=== PATIENT | male | born 1945 | race Caucasian/White ===

== ENCOUNTER → 2024-01-20 08:43 | Outpatient (CLI) | payer OTHER, SELFPAY ==
[2024-01-20 09:48] LABS: Add Manual Diff / Slide Review NO; Basophils Absolute Auto 0 /uL (0-100); Basophils Percent Auto 0.7 % (0-2); Eosinophils Absolute Auto 100 /uL (0-450); Eosinophils Percent Auto 2.4 % (2-4); Hematocrit 41.9 % (41-53); Lymphocytes Absolute Auto 1100 /uL (1100-4500); Lymphocytes Percent Auto 22.5 % (25-40); Mean Corpuscular HGB Conc 33.5 % (30-36); Mean Corpuscular Hemoglobin 31.2 PG (26-34); Mean Corpuscular Volume 93.1 fL (80-100); Monocytes Absolute Auto 500 /uL (0-900); Monocytes Percent Auto 9.6 % (3-14); Neutrophils Absolute Auto 3200 /uL (1500-7000); Neutrophils Percent Auto 64.8 % (50-75); Platelet Count 214 X10^3/uL (150-400); Red Cell Distribution Width 13.7 % (11.6-14.8)
[2024-01-20 10:22] LABS: Alanine Aminotransferase 28 IU/L (<50); Albumin 4.2 g/dL (3.5-5.0); Albumin Globulin Ratio 1.8 (1.0-2.8); Alkaline Phosphatase 67 U/L (38-126); Aspartate Aminotransferase 36 IU/L (17-59); Bilirubin Total 0.6 mg/dL (0.2-1.3); Blood Urea Nitrogen 27 mg/dL (9-20); Calcium 9.2 mg/dL (8.4-10.2); Carbon Dioxide 30 mmol/L (22-32); Chloride 104 mmol/L (98-107); Cholesterol 182 mg/dL (140-199); Estimated Glomerular Filt Rate > 60 mL/min (>60); Globulin 2.4 g/dL (1.7-4.1); Glucose 92 mg/dL (80-110); HDL Cholesterol 63 mg/dL (40-60); HEMOLYSIS < 15 (0-50); LDL Cholesterol Calculated 109 mg/dL (<100); Potassium 4.3 mmol/L (3.4-5.1); Sodium 140 mmol/L (137-145); Total Protein 6.6 g/dL (6.3-8.2); Triglycerides 52 mg/dL (35-150)
[2024-01-20 10:43] LABS: Prostate Specific Antigen Scrn 1.63 ng/mL (0.1-4.0)
[2024-01-20 17:00] LABS: Hep C Virus Ab w/Reflex Quant NEGATIVE s/c (NEGATIVE)
== END ==
PROVIDERS: PCP Family Medicine; Referring Provider Family Medicine; Visit Provider Family Medicine
DX: Z00.00 Encounter for general adult medical examination without abnormal findings (principal); K40.90 Unilateral inguinal hernia, without obstruction or gangrene, not specified as recurrent; N52.9 Male erectile dysfunction, unspecified; Z12.5 Encounter for screening for malignant neoplasm of prostate; R03.0 Elevated blood-pressure reading, without diagnosis of hypertension
CPT/HCPCS: 36415; 80053; 80061; 85025; 86803; G0103

== ENCOUNTER → 2024-05-14 09:48 | Outpatient (CLI) | payer OTHER, SELFPAY | PROVIDERS: PCP Family Medicine; Visit Provider Urology | DX: N40.1 Benign prostatic hyperplasia with lower urinary tract symptoms (principal) | CPT/HCPCS: 87086 ==

== ENCOUNTER 2024-05-18 07:56 | Day surgery (SDC) | payer OTHER, SELFPAY ==
[2024-05-12 09:21] VITALS: BMI 23.6
[2024-05-18] VITALS (12 sets, daily range): BP systolic 122–154; BP diastolic 68–86; PULSE 50–68; RESP 10–26; TEMP 36.1–36.5; O2SAT 95–100; BMI 23.6
--- NOTE | 2024-05-18 | PATH_ITS ---
[facility] Accession Number: [id number] No. of containers..01 Tissue . 01 Material submitted: . prostate - PROSTATE TISSUE . 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 Negative for epithelial atypia or malignancy. [facility] 05/20/2024 0937 Local . 01 Electronically signed: . Brunilda Arango MD, Pathologist NPI- [id number] . 01 Gross description: . Received in formalin with two patient identifiers and prostate tissue, are multiple hall soft tissue fragments admixed with a moderate amount of hemorrhagic material weighing 5 grams and aggregating to 5.2 x 5.2 x 1.5 cm. Submitted entirely in A1-A5. ([id number]) /MRV 05/19/2024 1454 Local . 01 Pathologist provided ICD-10: N40.1 . 01 CPT . 206054 Specimen Comment: A courtesy copy of this report has been sent to [facility] Performed at: [address] [address], [place], [place] [id number] MD Zaki Conde MD Phone: [phone]
[2024-05-18] MEDS: LACTATED RINGERS 1,000 ML 21 ML IV (08:21)
[2024-05-18] MEDS: FLEETS ENEMA 1 EACH PR (08:44)
--- NOTE | 2024-05-18 09:13 | P.OP.PRE_ITS ---
Pre-operative Note COVID-19 COVID-19 status: Not tested Interval Note History & Physical reviewed/Exam performed by Physician: Yes Changes to H&P: Yes H&P completed within 30 days and has changed as indicated here:: He did the re commended bowel prep preoperatively, however, does not have clear bowel movements at the moment. Discussed that I may not be able to visualize his prostate using the ultrasound probe. If that is the case, I would not be able to proceed with an Aquablation procedure. Discussed options to include rescheduling to another date vs performing a transurethral resection of his prostate. He opted for management via a TURP if that is the case. Consent was updated to reflect this change.
[2024-05-18] MEDS: CEFAZOLIN 2 GM/100 ML PREMIX 100 ML IV (09:42)
--- NOTE | 2024-05-18 10:07 | SUR.OPER ---
Lithotomy on padded OR bed, head on pillow, arms secured on padded arm boards at <90 degrees abduction. Legs secured in padded yellow fins stirrups.
--- NOTE | 2024-05-18 11:25 | PM.OP.1 ---
Procedure & Clinicians Procedure: Cystoscopy Aquablation Same procedure as scheduled: Yes Indications: 78 y/o M noted to have symptoms consistent w/ BPH and LUTS who is not a big medication person and prefers to have an Aquablation procedure performed. Surgeon: Carlos Medeiros Click Yes if Unassisted: Yes Anesthesia Type: General Operative Notes Findings: Coaptating lateral prostatic lobes, no intravesical median lobe Closure Type: not applicable Specimen(s): other (prostate chips) Applied: catheter Estimated Blood Loss (mL): 50 Blood products transfused: none Procedure in detail: After informed consent was obtained, the patient was identified brought to the operating room where he was placed in his supine position on the table.? Once there anesthesia was induced and maintained.? Ensuring an adequate level of anesthesia the patient was transitioned to the lithotomy position where after time-out he was prepped.? After prepping, ensuring an adequate level of anesthesia, administration IV antibiotics and time-out 60 cc of ultrasound gel was instilled within the rectum and the ultrasound probe which had been attached to the TRUS stepper which was attached to the TRUS stepper articulating arm which was secured to the bed was advanced into the rectum under direct vision via the ultrasound.? The ultrasound probe was then aligned and confirmation made that the prostate was centered and aligned in both the sagittal and transverse views.? The bladder neck, verumontanum, central and transitional zones were identified.? With the ultrasound in place and adjusted the patient was then draped in a sterile fashion. With the patient draped the 24 [place] aqua beam handpiece was then inserted through the urethra and advanced into the bladder.? Cystoscopy was then performed and no concerning bladder mass or lesions were noted.? Bilateral ureteral orifices were noted to be orthotopic in nature.? As the cystoscope was advanced the level of the sphincter, verumontanum, bladder neck were all identified via ultrasound and under direct vision.? The aqua beam hand place was then secured to the handpiece articulating arm which had been secured to the bed.? The Aquablation handpiece and TRUS probe were confirmed to be parallel and colinear.? Confirmation was then made that the aqua beam handpiece and nozzle was centered and anterior to the bladder neck.? The cystoscope was then retracted under direct vision in the sphincter and verumontanum were identified.? The tip of the cystoscope was then placed proximal to the external sphincter.? Compression was applied with the TRUS probe to the prostate.? The alignment of the TRUS probe and aqua beam handpiece was once again confirmed.? Horizontal alignment of the handpiece water jet was then performed.? With these adjustments made, the treatment zones were then planned using real-time ultrasound.? In the largest transverse view of the prostate the depth and radial angles were determined and set again in the transverse view of the prostate.? In the longitudinal and sagittal view the Aquablation nozzle was identified and its position registered with the software and robot.? The treatment contours were then determined and adjusted to reflect the intended margins of resection.? Following our plan confirmation, the Aquablation resection treatment was started.? A 2nd pass was then completed in similar fashion after the 1st pass had been completed.? At this point, the Aqua hand piece was removed from the urethra. The 26Fr resectoscope was then inserted into the urethra and cystoscopy was repeated.? The Elik habilitation worker was utilized to evacuate the blood clots from the bladder.? The bladder neck was then resected using the bipolar Gyrus loop.? Bilateral ureteral orifices were again identified and noted to be intact at case end.? Hemostasis was obtained and noted to be excellent at case end.? The resectoscope was then removed and a 22Fr Liliana 3-way hematuria catheter was inserted through the urethra and into the bladder.? 45cc of sterile water was utilized for balloon insufflation.? Efflux was noted to be clear at case end.? Anesthesia was reversed, he was extubated in the OR and transferred to the PACU in stable condition for recovery. Complications: none Post-operative Condition: stable Disposition: PACU Plan for aftercare: Will continue to run CBI for a few hours to evaluate the efflux from his catheter.? Should it remain relatively clear and with minimal blood clots, will discharge home with catheter in place and have him return to Urology clinic in 2 days for a voiding trial.? Should his efflux remain red or have significant clot burden, will admit overnight for observation and continued CBI.
--- NOTE | 2024-05-18 14:29 | SUR.PHASEII ---
1400 - Demonstrated to pt and (with return demonstration) emptying of beltran bag and care of catheter. Demonstrated flushing catheter as needed. Pt and verbalize understanding. Beltran cont's to drain clear pink. Awaiting Dr Medeiros's return for final assessment and discharge ok.
== END 2024-05-18 14:45 | disposition home or self-care (01) ==
LOC: OR 08:09 → AC 08:10
PROVIDERS: PCP Family Medicine; Referring Provider Urology; Visit Provider Urology
PROC: 0VT08ZZ Resection of Prostate, Via Natural or Artificial Opening Endoscopic (ICD-10-PCS; CPT 52597; principal; 2024-05-18 09:30)
DX: N40.1 Benign prostatic hyperplasia with lower urinary tract symptoms (principal); R35.1 Nocturia; R39.15 Urgency of urination
CPT/HCPCS: 0421T; C2596; J0690; J1100; J2405; J2704; J3010

== ENCOUNTER → 2024-05-20 14:27 | Outpatient (CLI) | payer OTHER, SELFPAY | PROVIDERS: PCP Family Medicine; Visit Provider Urology | DX: N40.1 Benign prostatic hyperplasia with lower urinary tract symptoms (principal) | CPT/HCPCS: 51798; 87086; 99213 ==

== ENCOUNTER → 2024-07-01 08:52 | Outpatient (CLI) | payer OTHER, SELFPAY | PROVIDERS: PCP Family Medicine; Visit Provider Urology | DX: N40.1 Benign prostatic hyperplasia with lower urinary tract symptoms (principal); Z12.5 Encounter for screening for malignant neoplasm of prostate | CPT/HCPCS: 51798; 81002; 87086; 99213 ==

== ENCOUNTER → 2024-09-30 10:32 | Outpatient (CLI) | payer OTHER, SELFPAY ==
[2024-09-30 10:40] LABS: Appearance Urine UA CLEAR; Bilirubin Urine UA NEGATIVE (NEGATIVE); Color Urine UA YELLOW; Glucose Urine UA NEGATIVE (Negative); Ketones Urine UA NEGATIVE (NEGATIVE); Leukocyte Esterase Urine UA TRACE (NEGATIVE); Nitrite Urine UA NEGATIVE (Negative); Occult Blood Urine UA NEGATIVE (Negative); Protein Urine UA NEGATIVE (Negative); Specific Gravity Urine UA 1.015 (1.000-1.035); Urobilinogen Urine UA 0.2 E.U./dL (0.2); pH Urine UA 6.0 (4.5-8.0)
[2024-09-30 11:04] LABS: Other Crystals Urine Other Crystals: FEW
[2024-09-30 11:05] LABS: Culture Indicated Urine Specimen Cultured
== END ==
PROVIDERS: PCP Family Medicine; Visit Provider Urology
DX: R39.9 Unspecified symptoms and signs involving the genitourinary system (principal)
CPT/HCPCS: 81001; 87086

== ENCOUNTER → 2025-03-03 09:31 | Outpatient (CLI) | payer OTHER, SELFPAY ==
[2025-03-03 10:17] LABS: Alanine Aminotransferase 28 IU/L (<50); Albumin 4.6 g/dL (3.5-5.0); Albumin Globulin Ratio 1.7 (1.0-2.8); Alkaline Phosphatase 74 U/L (38-126); Blood Urea Nitrogen 30 mg/dL (9-20); Calcium 9.4 mg/dL (8.4-10.2); Carbon Dioxide 28 mmol/L (22-32); Chloride 103 mmol/L (98-107); Cholesterol 207 mg/dL (140-199); Estimated Glomerular Filt Rate > 60 mL/min (>60); Globulin 2.7 g/dL (1.7-4.1); Glucose 91 mg/dL (70-99); HDL Cholesterol 78 mg/dL (40-60); HEMOLYSIS < 15 (0-50); Potassium 4.7 mmol/L (3.4-5.1); Sodium 139 mmol/L (137-145); Total Protein 7.3 g/dL (6.3-8.2); Triglycerides 84 mg/dL (35-150)
[2025-03-03 10:49] LABS: Prostate Specific Antigen 1.23 ng/mL (0.10-4.00)
== END ==
PROVIDERS: Urology; PCP Family Medicine; Referring Provider Family Medicine; Visit Provider Family Medicine
DX: Z00.00 Encounter for general adult medical examination without abnormal findings (principal); Z12.5 Encounter for screening for malignant neoplasm of prostate; N40.1 Benign prostatic hyperplasia with lower urinary tract symptoms; I10 Essential (primary) hypertension; E78.5 Hyperlipidemia, unspecified
CPT/HCPCS: 36415; 80053; 80061; 84153